=== PATIENT | female | born 1975 | race Caucasian/White ===

== ENCOUNTER 2017-06-08 06:25 | Emergency (ER) | payer OTHER ==
[2017-06-08 07:08] LABS: BASOPHIL 0.5 % (0-2.0); MCH 30.5 pg (25.7-33.7); MCHC 34.1 g/dl (32.0-36.0); MEAN CELL VOLUME 89.7 fl (80-96); MEAN PLT VOLUME 8.6 fl (7.5-11.1); NEUTROPHILS 85.7 % (42.8-82.8); PLATELET COUNT 233 K/MM3 (134-434); WHITE BLOOD COUNT 11.7 K/mm3 (4.0-10.0)
[2017-06-08 07:19] VITALS: BP 151/93; PULSE 71; TEMP 97.4; BMI 25.6
[2017-06-08 07:28] LABS: AMYLASE 33 U/L (25-115)
--- NOTE | 2017-06-08 07:50 | PDOC ---
Attending Attestation - Resident Resident Name: Justin Bey - ED Attending Attestation I have performed the following: I have examined & evaluated the patient, The case was reviewed & discussed with the resident, I agree w/resident's findings & plan, Exceptions are as noted - HPI HPI: 06/08/17 10:13 41y F hx of migraine headaches presents with headache, n/v for 3 days. pt states headache gradually worsend today until it was un bearable, it was pounding in nature asso ciated with photophobia, phonophobia. Pt states that sleep usually helps, she has not seen a doctor in 2002 due to fear of the medical establishment. She takes tylenol at home and usually it helps a little, and her headaches typically last for ~1 week before resolving. She states her headaches have been more frequent over the past few years. from 1x every few months to now 1x every few weeks. pt denies any focal neurological complaints. on exam pt appears well, in no distress, neuro exam i snon focal. suspect migraine headache labs reviewed K slightly low UA c/w uti will obtain CT head toradol/reglan/mag will have pt fu with neuro 06/08/17 13:[address] head showing incidental findings will have pt fu with dr. arellano for further evaluation of headache retur nprecautions were discussed I discussed the physical exam findings, ancillary test results and final diagnoses with the patient. I answered all of the patient's questions. The patient was satisfied with the care received and felt comfortable with the discharge plan and treatment plan. The patient will call their primary care physician within 24 hours to arrange follow-up and will return to the Emergency Department with any new, persistent or worsening symptoms. - Physicial Exam PE: 06/08/17 18:01 see above - Medical Decision Making 06/08/17 18:01 guero hayes
[2017-06-08] MEDS ORDERED: METOCLOPRAMIDE HCL INJECTION 10 MG/2 ML VIAL IVPUSH ONE (08:02)
[2017-06-08] MEDS ORDERED: SODIUM CHLORIDE 1,000 ML IV ONE (08:03)
[2017-06-08 08:05] LABS: ALBUMIN 3.6 g/dl (3.4-5.0); ALK PHOS 75 U/L (45-117); ANION GAP 9 (8-16); BILIRUBIN,TOTAL 0.7 mg/dL (0.2-1.0); CALCIUM 8.9 mg/dL (8.5-10.1); CO2 26 mmol/L (21-32); CREATININE 0.5 mg/dL (0.55-1.02); GLUCOSE,RANDOM 129 mg/dL (74-106); SGOT/AST 17 U/L (15-37); SGPT/ALT 19 U/L (12-78); TOT PROT 6.6 g/dl (6.4-8.2)
[2017-06-08] MEDS ORDERED: METOCLOPRAMIDE HCL INJECTION 10 MG/2 ML VIAL ONE (08:08)
--- NOTE | 2017-06-08 08:21 | PDOC ---
History of Present Illness - History of Present Illness Initial Comments: 06/08/17 08:10 41 yo F with h/o ophthalmic complaints, and migraines with aura who presents with OLEARY. She reports experiencing a progressive, worsening, pulsating (10/10) frontal, right temporal occipital headache of 3 days duration. Denies head or neck trauma. She endorses nausea and vomiting over the past 24 hours. She denies hematemesis. OLEARY sudden in onset and maximal intensity, occurring while sitting down at work. Pt. describes as worst migraine she has experienced. States that OLEARY has been debilitating and interfered with work duties. Also complains of photophobia, phonophobia, vision changes/scintillating scotomas, decreased appetite. Denies paralysis or weakness, but reports episode of paralysis with migraine in the past. Denies syncope, neck stiffness, fevers/ chills, SOB, GI or urinary complaints. OLEARY is refractory to OTC Tylenol and Excedrin, which have been unsuccessful in eradicating OLEARY in past. OLEARY also refractory to marijuana which has been successful in past. Denies other illicit drug use. Pt. has avoided caffeine and does not follow with neurology d/t fear of physicians and receiving bad news or rapid deterioration. <Justin Bey - Last Filed: 06/08/17 09:44> <Andrea Díaz - Last Filed: 06/08/17 13:24> - General Stated Complaint: VOMITING Time Seen by Provider: 06/08/17 06:59 Past History - Past Medical History Asthma: Yes Other medical history: Migraines - Surgical History Neurologic Surgery: Yes (2 years old) - Psycho/Social/Smoking Cessation Hx Anxiety: Yes Suicidal Ideation: No Smoking History: Never smoked Hx Alcohol Use: No Drug/Substance Use Hx: No Substance Use Type: None <Justin Bey - Last Filed: 06/08/17 09:44> Review of Systems - Review of Systems Comments:: GENERAL/CONSTITUTIONAL: No fever or chills. No weakness. HEAD, EYES, EARS, NOSE AND THROAT:+ Scintillating scotomas. No ear pain or discharge. No sore throat. CARDIOVASCULAR: No chest pain or shortness of breath RESPIRATORY: No cough, wheezing, or hemoptysis. GASTROINTESTINAL: +nausea, vomiting. No diarrhea or constipation. GENITOURINARY: No dysuria, frequency, or change in urination. MUSCULOSKELETAL: No joint or muscle swelling or pain. No neck or back pain. SKIN: No rash NEUROLOGIC:+ headache. No vertigo, loss of consciousness, or change in strength/ sensation. No hemiplegia ENDOCRINE: No increased thirst. No abnormal weight change HEMATOLOGIC/LYMPHATIC: No anemia, easy bleeding, or history of blood clots. ALLERGIC/IMMUNOLOGIC: No hives or skin allergy. <uJstin Bey - Last Filed: 06/08/17 09:44> *Physical Exam - Vital Signs Last Vital Signs Temp Pulse Resp BP Pulse Ox 97.4 F L 71 20 151/93 100 06/08/17 07:00 06/08/17 07:00 06/08/17 07:00 06/08/17 07:00 06/08/17 07:00 - Physical Exam Comments: 06/08/17 08:57 GENERAL: Awake, alert, and fully oriented, in no acute distress HEAD: No signs of trauma, normocephalic, atraumatic Absent TTP. EYES: PERRLA, EOMI, sclera anicteric, conjunctiva clear ENT: Auricles normal inspection, hearing grossly normal, nares patent, oropharynx clear without exudates. Moist mucosa NECK: Normal ROM, supple, no lymphadenopathy, JVD, or masses LUNGS: No distress, speaks full sentences, clear to auscultation bilaterally HEART: Regular rate and rhythm, normal S1 and S2, no murmurs, rubs or gallops, peripheral pulses normal and equal bilaterally. ABDOMEN: Soft, nontender, normoactive bowel sounds. No guarding, no rebound. No masses EXTREMITIES: Normal inspection, Normal range of motion, no edema. No clubbing or cyanosis. NEUROLOGICAL: Cranial nerves II through XII grossly intact. Biceps tendon and patellar reflexes 2+ and symmetric. Normal speech, normal gait, no focal sensorimotor deficits. Gross motor strength intact. Sensation to pinprick intact in UE and LE. Proprioception intact. Absent dysmetira on finger to nose. Rapid alternating hand movements intact. SKIN: Warm, Dry, normal turgor, no rashes or lesions noted. <Justin Bey - Last Filed: 06/08/17 09:44> - Vital Signs Last Vital Signs Temp Pulse Resp BP Pulse Ox 97.4 F L 71 20 151/93 100 06/08/17 07:00 06/08/17 07:00 06/08/17 07:00 06/08/17 07:00 06/08/17 07:00 <Andrea Díaz - Last Filed: 06/08/17 13:24> ED Treatment Course - LABORATORY CBC & Chemistry Diagram: 06/08/17 06:55 06/08/17 06:55 - ADDITIONAL ORDERS Additional order review: Laboratory Results 06/08/17 06:55 Total Amylase 33 Lipase 102 06/08/17 06:55 RBC 4.12 MCV 89.7 MCHC 34.1 RDW 13.0 MPV 8.6 Neutrophils % 85.7 H Lymphocytes % 9.0 Monocytes % 3.8 Eosinophils % 1.0 Basophils % 0.5 <Justin Bey - Last Filed: 06/08/17 09:44> - LABORATORY CBC & Chemistry Diagram: 06/08/17 06:55 06/08/17 06:55 - ADDITIONAL ORDERS Additional order review: Laboratory Results 06/08/17 06/08/17 06/08/17 08:31 06:55 06:55 Sodium 140 Potassium 3.3 L Chloride 105 Carbon Dioxide 26 Anion Gap 9 BUN 12 Creatinine 0.5 L Creat Clearance w eGFR > 60 Random Glucose 129 H Calcium 8.9 Total Bilirubin 0.7 AST 17 ALT 19 Alkaline Phosphatase 75 Total Protein 6.6 Albumin 3.6 Total Amylase 33 Lipase 102 Urine Color Yellow Urine Appearance Slcloudy Urine pH 6.0 Urine Protein 1+ H Urine Glucose (UA) Negative Urine Ketones 2+ H Urine Blood 1+ H Urine Nitrite Negative Urine Bilirubin Negative Urine Urobilinogen Negative Ur Leukocyte Esterase Trace Urine RBC <1 Urine WBC 13 Ur Epithelial Cells Rare Urine Bacteria Many Hyaline Casts 2 Urine Mucus Rare 06/08/17 06:55 RBC 4.12 MCV 89.7 MCHC 34.1 RDW 13.0 MPV 8.6 Neutrophils % 85.7 H Lymphocytes % 9.0 Monocytes % 3.8 Eosinophils % 1.0 Basophils % 0.5 - RADIOLOGY Radiology Studies Ordered: Category Date Time Status HEAD CT WITHOUT CONTRAST [CT] Stat CT Scan 06/08/17 10:12 Completed <Andrea Díaz - Last Filed: 06/08/17 13:24> Medical Decision Making - Medical Decision Making 06/08/17 09:05 41 yo F with h/o migraines who presents with OLEARY. Pt. reports worsening OLEARY of 10/ 10 severity for past 72 hours. Symptoms typical of migraine w/out aura. These include photophobia, phonophobia, scintillating scotomas, N/V, fatigue. There is low suspicion for subarachnoid hemorrhage although pt. endorses typical presentation of worse OLEARY of life, maximal intensity, and sudden onset. Unlikely this patient has meningitis. She is non toxic appearing, and denies fevers/ chills. HS on presentation. Pt. does not follow with neurology. ED course: CBC, CMP UA NS 1000ml Metoclopramide 10mg IV 06/08/17 09:14 CBC: unremarkable CMP: K+ 3.3 06/08/17 09:44 Plan to discharge. F/u outpatient Neurology. <Justin Bey - Last Filed: 06/08/17 09:44> *DC/Admit/Observation/Transfer - Discharge Dispostion Admit: No - Attestations Physician Attestion: 06/08/17 09:50 I, Dr. Justin Bey, attest that this document has been prepared under my direction and personally reviewed by me in its entirety. I further attest, that it accurately reflects all work, treatment, procedures and medical decision -making performed by me. <Justin Bey - Last Filed: 06/08/17 09:44> <Andrea Díaz - Last Filed: 06/08/17 13:24> Diagnosis at time of Disposition: Migraine without aura or status migrainosus Qualifiers: Intractability: intractable Qualified Code(s): G43.019 - Migraine without aura , intractable, without status migrainosus - Referrals Referrals: Evelio France MD [Primary Care Provider] - Boom Aly MD [Staff Physician] - - Patient Instructions Printed Discharge Instructions: Migraine -- Adult Additional Instructions: Im sorry for your migraine. I believe things will get better after you follow up with Neurology. Please follow up with Dr. Aly. I have provided his information on discharge instructions. On CT there is no emergent pathology noted. However there was an incidental finding in left parietal lobe. Please follow up with your primary care provider regarding this image finding. We have provided you a copy of the finding on your CT report. If you experience any fevers/chills, or if headache continues to persist with maximal severity then return to ED for further evaluation.
[2017-06-08 09:29] LABS: URINE APPEARANCE SLCLOUDY; URINE BILIRUBIN NEGATIVE (NEGATIVE); URINE BLOOD 1+ (NEGATIVE); URINE COLOR YELLOW; URINE GLUCOSE (UA) NEGATIVE (NEGATIVE); URINE KETONE 2+ (NEGATIVE); URINE LEUK ESTERASE TRACE (NEGATIVE); URINE NITRITE NEGATIVE (NEGATIVE); URINE UROBILINOGEN NEGATIVE mg/dL (0.2-1.0)
[2017-06-08 09:44] LABS: URINE PROTEIN 1+ (NEGATIVE)
[2017-06-08 09:50] LABS: URINE BACTERIA MANY /hpf (NONE SEEN); URINE HYALINE CAST 2 /lpf; URINE MUCUS RARE; URINE RBC <1 /hpf (0-3); URINE WBC 13 /hpf (3-5)
[2017-06-08] MEDS ORDERED: MAGNESIUM SULF 50% (8.12 MEQ/2 ML-1 GM VIAL) IVPB ONE (10:13)
[2017-06-08] MEDS ORDERED: KETOROLAC TROMETHAMINE 15 MG/ML VIAL IVPUSH ONE (10:13)
[2017-06-08] MEDS ORDERED: MAGNESIUM SULF 50% (8.12 MEQ/2 ML-1 GM VIAL) ONE (10:14)
[2017-06-08] MEDS ORDERED: KETOROLAC TROMETHAMINE 15 MG/ML VIAL ONE (10:14)
== END 2017-06-08 13:32 | disposition home or self-care (01) ==
LOC: JER 06:25
PROC: 3E033GC Introduction of Other Therapeutic Substance into Peripheral Vein, Percutaneous Approach (ICD-10-PCS; principal; 2017-06-08)
DX: G43.019 Migraine without aura, intractable, without status migrainosus (principal)
CPT/HCPCS: 36415; 70450-TC; 80053; 81003; 81015; 82150; 83690; 96374; 99283-25

== ENCOUNTER 2025-01-05 13:02 | Emergency (ER) | payer OTHER ==
[2025-01-05 13:23] VITALS: BP 127/89; PULSE 92; RESP 18; TEMP 99.5; BMI 29.4
[2025-01-05 15:21] LABS: PH,URINE 6.5 (5.0-8.0); URINE APPEARANCE CLEAR; URINE BILIRUBIN NEGATIVE (NEGATIVE); URINE COLOR YELLOW; URINE GLUCOSE (UA) NEGATIVE (NEGATIVE); URINE KETONE NEGATIVE (NEGATIVE); URINE LEUK ESTERASE NEGATIVE (NEGATIVE); URINE NITRITE NEGATIVE (NEGATIVE); URINE PROTEIN NEGATIVE (NEGATIVE); URINE UROBILINOGEN 0.2 mg/dL (0.2-1.0)
== END 2025-01-05 16:46 | disposition home or self-care (01) ==
LOC: JER 13:02
DX: N81.4 Uterovaginal prolapse, unspecified (principal); R10.2 Pelvic and perineal pain
CPT/HCPCS: 81003; 87086; 99283-25